=== PATIENT | female | born 1960 | race Caucasian/White ===

== ENCOUNTER 2016-11-03 07:47 | Day surgery (SDC) | payer OTHER ==
[2016-11-03 08:16] VITALS: BMI 42.9
[2016-11-03] MEDS ORDERED: Propofol 10 mg/ml Inj (20 ML) ONE (09:31)
[2016-11-03 09:35] VITALS: O2SAT 100
[2016-11-03 10:02] VITALS: TEMP 97.5
[2016-11-03 11:14] VITALS: RESP 18
[2016-11-03 13:06] VITALS: BP 118/80; PULSE 61
== END 2016-11-03 11:15 | disposition home or self-care (01) ==
LOC: C.ENDO 07:47
PROVIDERS: ATTEND Internal Medicine Gastroenterology
DX: D12.5 Benign neoplasm of sigmoid colon (principal); D12.3 Benign neoplasm of transverse colon; K57.90 Diverticulosis of intestine, part unspecified, without perforation or abscess without bleeding; K64.8 Other hemorrhoids
CPT/HCPCS: 45388; 84703; 88305; J2704